=== PATIENT | female | born 1995 | race Caucasian/White ===

== ENCOUNTER 2020-06-29 11:42 | Emergency (ER) | payer BC ==
[2020-06-29 11:48] VITALS: BP 124/86; PULSE 82; RESP 18; TEMP 98.9
[2020-06-29] MEDS ORDERED: MORPHINE SULFATE 4 MG/ML SYRINGE IM STA (12:05)
--- NOTE | 2020-06-29 12:08 | ED ---
General Adult HPI - General Chief complaint: Extremity Injury, Lower Stated complaint: SLEDDING AND HIT A STUMP Time Seen by Provider: 06/29/20 11:59 Source: patient, RN notes reviewed, old records reviewed Mode of arrival: ambulatory Limitations: no limitations - History of Present Illness Initial comments: Patient is a 25-year-old female presents emergency department today with complaints of right hip and femur pain after she was having a sledding injury. Patient reports that she slipped on her sled and went on a very steep hill and was going fast. She reports that she hit a tree with her right femur and bounced off. Patient reports she has some rebound pain afterwards and was able to bear minimal amount of weight over her leg with walking. Patient family brought her in for evaluation. She denies any other head or neck injury or other complaints of pain. She reports pain with range of motion of her foot and ankle and to her thigh and hip. - Related Data Previous Rx's Medication Instructions Recorded Ibuprofen [Motrin] 600 mg PO Q8HR PRN #20 tab 06/29/20 Allergies Allergy/AdvReac Type Severity Reaction Status Date / Time No Known Allergies Allergy Verified 06/29/20 12:45 Review of Systems ROS Statement: Those systems with pertinent positive or pertinent negative responses have been documented in the HPI. ROS Other: All systems not noted in ROS Statement are negative. Past Medical History Past Medical History: No Reported History History of Any Multi-Drug Resistant Organisms: None Reported Past Surgical History: Adenoidectomy Past Psychological History: No Psychological Hx Reported Smoking Status: Never smoker Past Alcohol Use History: Occasional Past Drug Use History: None Reported General Exam - General Exam Comments Initial Comments: Alert and oriented 25-year-old female. No distress. Limitations: no limitations General appearance: alert, in no apparent distress Head exam: Present: atraumatic, normocephalic, normal inspection Eye exam: Present: normal appearance, PERRL, EOMI. Absent: scleral icterus, conjunctival injection, periorbital swelling ENT exam: Present: normal exam, mucous membranes moist Neck exam: Present: normal inspection. Absent: tenderness, meningismus, lymphadenopathy Respiratory exam: Present: normal lung sounds bilaterally. Absent: respiratory distress, wheezes, rales, rhonchi, stridor Cardiovascular Exam: Present: regular rate, normal rhythm, normal heart sounds. Absent: systolic murmur, diastolic murmur, rubs, gallop, clicks GI/Abdominal exam: Present: soft, normal bowel sounds. Absent: distended, tenderness, guarding, rebound, rigid Extremities exam: Present: normal inspection, full ROM, normal capillary refill. Absent: tenderness, pedal edema, joint swelling, calf tenderness Right Upper Leg exam: Present: normal inspection, full ROM, tenderness (Is tenderness over the right femur bruising noted on quadricep) Knee exam: Present: normal inspection, full ROM Lower Leg exam: Present: normal inspection, full ROM Ankle exam: Present: normal inspection, full ROM Foot/Toe exam: Present: normal inspection, full ROM Back exam: Present: normal inspection Neurological exam: Present: alert, oriented X3, CN II-XII intact Psychiatric exam: Present: normal affect, normal mood Course Vital Signs 06/29/20 11:43 Temperature 98.9 F Pulse Rate 82 Respiratory 18 Rate Blood Pressure 124/86 O2 Sat by Pulse 99 Oximetry Medical Decision Making - Medical Decision Making 25-year-old female presents to the ER today for complaints of right thigh and hip pain after she was had a sledding injury and hit her leg on the end of a tree stump. Patient reports that some pain with ambulation afterwards. Patient has contusion over the right quadriceps muscle. Reports pain with any range of motion. At this time patient's x-ray showed no evidence of fracture. Discussed likely due to significant muscle contusion. I discussed antiplatelet medicine rest ice and elevate for pain. I discussed the Patient needs to follow-up with orthopedic for possible evaluation of knee ligament sprain to the injury. Patient is agreeable to plan will comply. Return parameters were discussed. - Radiology Data Radiology results: report reviewed Right femur shows no acute fracture near to chelation is grossly intact. No knee joint effusion identified. Pelvis and hip show IUD symmetry to his SI joints appear symmetric and intact. No fracture subluxation dislocation. Disposition Clinical Impression: Quadriceps contusion, Knee sprain Disposition: HOME SELF-CARE Condition: Good Instructions (If sedation given, give patient instructions): Contusion in Adults (ED), Knee Sprain (ED) Additional Instructions: Please use medication as discussed. Please follow up with orthopedic doctor if symptoms have not improved over the next two days. Patient wear knee immobilizer while awake. Please return to the emergency room if your symptoms increase or worsen or for any other concerns. Prescriptions: Ibuprofen [Motrin] 600 mg PO Q8HR PRN #20 tab PRN Reason: Pain Is patient prescribed a controlled substance at d/c from ED?: No Referrals: None,Stated [Primary Care Provider] - 1-2 days Sheldon Drake DO [Doctor of Osteopathic Medicine] - 1-2 days Time of Disposition: 13:14
--- NOTE | 2020-06-29 13:10 | XR ---
EXAMINATION TYPE: AP view pelvis and 2 views right hip XR femur 2 views RT DATE OF EXAM: 06/29/2020 COMPARISON: NONE HISTORY: 25-year-old female sledding injury, pain. FINDINGS: Pelvis and right hip: IUD is demonstrated. SI joints appear symmetric and intact as does the pubic symphysis. No acute frac ture, subluxation, or dislocation. Right femur: No acute fracture. Knee articulation grossly intact. No knee joint effusion identified. IMPRESSION (pelvis, right hip, and right femur): No acute osseous abnormality seen. IUD incidentally noted.
== END 2020-06-29 13:20 | disposition home or self-care (01) ==
LOC: EC 11:42
DX: S70.11XA Contusion of right thigh, initial encounter (principal); S83.91XA Sprain of unspecified site of right knee, initial encounter; W22.09XA Striking against other stationary object, initial encounter; Y93.23 Activity, snow (alpine) (downhill) skiing, snowboarding, sledding, tobogganing and snow tubing; Y92.89 Other specified places as the place of occurrence of the external cause
CPT/HCPCS: 99284; 96372; 73502; 73552; J2270